=== PATIENT | female | born 1955 | race Caucasian/White ===

== ENCOUNTER → 2017-05-09 | Outpatient (CLI) | payer OTHER | END | disposition home or self-care (01) | LOC: CFH 10:03 | PROVIDERS: ATTEND Family Medicine | DX: I34.0 Nonrheumatic mitral (valve) insufficiency (principal); I35.8 Other nonrheumatic aortic valve disorders; H34.219 Partial retinal artery occlusion, unspecified eye; E11.9 Type 2 diabetes mellitus without complications; E78.2 Mixed hyperlipidemia; I65.22 Occlusion and stenosis of left carotid artery | CPT/HCPCS: 93306; 93880 ==

== ENCOUNTER 2017-07-26 07:44 | Inpatient (IN) | payer OTHER ==
[~2017-07-26] VITALS: Ht 165.1 cm; Wt 123.3 kg
[2017-07-26] MEDS ORDERED: SODIUM CHLORIDE FLUSH 10ML SYR IVF ONE (08:30)
[2017-07-26] MEDS ORDERED: Benfotiamine (08:41)
[2017-07-26] MEDS ORDERED: DAPA10TA PO (08:41)
[2017-07-26] MEDS ORDERED: INSU100V8 SQ (08:41)
[2017-07-26] MEDS ORDERED: METF500T4 PO (08:41)
[2017-07-26] MEDS ORDERED: INSU100V9 SQ-INSULIN (08:41)
[2017-07-26] MEDS ORDERED: EZET10TA18 PO (08:45)
[2017-07-26] MEDS ORDERED: MAGN400T36 PO (08:45)
[2017-07-26] MEDS ORDERED: LIPA1CAP4 PO (08:45)
[2017-07-26] MEDS ORDERED: FLUO10CA7 PO (08:45)
[2017-07-26] MEDS ORDERED: caltrate (08:45)
[2017-07-26] MEDS ORDERED: LEVO15TA6 PO (08:45)
[2017-07-26] MEDS ORDERED: CHOL100012 PO (08:45)
[2017-07-26] MEDS ORDERED: OMEP-110 PO (08:45)
[2017-07-26] MEDS ORDERED: THYR16.2 PO (08:45)
[2017-07-26 08:48] LABS: HEMATOCRIT 42.6 % (34.6-47.8); HEMOGLOBIN 13.9 g/dL (11.7-16.4); WHITE BLOOD COUNT 9.7 x10^3/uL (3.4-10)
[2017-07-26 09:50] LABS: IS PT STATUS REG ER OR PRE ER? YES
[2017-07-26 10:56] LABS: ASPARTATE AMINO TRANSFERASE 16 U/L (15-37); BLOOD UREA NITROGEN 15 mg/dL (7-18)
[2017-07-26] MEDS ORDERED: GUAIFENESIN/DM 200-20MG, 10ML UDC PO PRN (11:00)
[2017-07-26] MEDS ORDERED: POLYETHYLENE GLYCOL 17 GM PACKET PO PRN (11:00)
[2017-07-26] MEDS ORDERED: MORPHINE SULFATE 4 MG/ML, 1ML IVPush PRN (11:00)
[2017-07-26] MEDS ORDERED: LABETALOL 5MG/ML, 20ML IVPush PRN (11:00)
[2017-07-26] MEDS ORDERED: ONDANSETRON ODT 4 MG PO PRN (11:00)
[2017-07-26 11:02] LABS: PATH.CAST-FLAG NOT PRESENT; SPERM-FLAG NOT PRESENT; SRC-FLAG NOT PRESENT; XTAL-FLAG NOT PRESENT; YLC-FLAG NOT PRESENT
[2017-07-26] MEDS ORDERED: ENOXAPARIN 40 MG/0.4 ML ONE (11:05)
[2017-07-26] MEDS: ENOXAPARIN 40 MG/0.4 ML SQ SCH (11:08)
[2017-07-26 12:47] VITALS: BP 116/70
[2017-07-26 13:43] VITALS: BP 128/75
[2017-07-26 14:39] LABS: IS PT STATUS REG ER OR PRE ER? NO
[2017-07-26] MEDS: INSULIN ASPART 100 UNITS/ML, PEN SQ-INSULIN SCH ×2 (16:00→20:50)
[2017-07-26] MEDS: INSULIN DETEMIR 100 UNITS/ML, PEN SQ-INSULIN SCH (16:37)
[2017-07-26 19:31] VITALS: BP 152/72
[2017-07-26 20:38] LABS: IS PT STATUS REG ER OR PRE ER? NO
[2017-07-26] MEDS ORDERED: THYROID PORK 16.25 MG PO SCH (21:00)
[2017-07-27 01:23] VITALS: BP 124/71
[2017-07-27] MEDS: ONDANSETRON 2MG/ML, 2ML IVPush PRN ×2 (01:37→12:45)
[2017-07-27] MEDS ORDERED: THYROID 30 MG TABLET PO SCH (06:00)
[2017-07-27] MEDS ORDERED: ASPIRIN 81 MG TABLET EC PO SCH (06:00)
[2017-07-27] MEDS ORDERED: LEVOTHYROXINE 25 MCG TABLET PO SCH (06:00)
[2017-07-27 07:10] VITALS: BP 126/74
[2017-07-27] MEDS ORDERED: OMEPRAZOLE 20 MG CAPSULE.DR PO SCH (07:30)
[2017-07-27] MEDS ORDERED: FLUOXETINE 10 MG CAP PO SCH (09:00)
[2017-07-27] MEDS ORDERED: MAGNESIUM OXIDE 400 MG TABLET PO SCH (09:00)
[2017-07-27] MEDS ORDERED: LEVOMEFOLATE CALCIUM 15 MG PO SCH (09:00)
[2017-07-27] MEDS ORDERED: EZETIMIBE 10 MG TABLET PO SCH (09:00)
[2017-07-27] MEDS ORDERED: SENNA/DOCUSATE TABLET PO SCH (09:00)
[2017-07-27] MEDS ORDERED: CHOLECALCIFEROL 1,000 UNIT TABLET PO SCH (09:00)
[2017-07-27] MEDS: INSULIN DETEMIR 100 UNITS/ML, PEN SQ-INSULIN SCH (09:40)
[2017-07-27] MEDS ORDERED: REGADENOSON 0.4 MG/5 ML SYRINGE ONE (11:16)
[2017-07-27] MEDS: ENOXAPARIN 40 MG/0.4 ML SQ SCH (12:45)
[2017-07-27] MEDS: INSULIN ASPART 100 UNITS/ML, PEN SQ-INSULIN SCH ×2 (12:54→16:03)
[2017-07-27 13:40] VITALS: BP 126/72
[2017-07-27] MEDS ORDERED: METF500T PO (15:43)
== END 2017-07-27 18:01 | disposition home or self-care (01) | DRG 638 ==
LOC: ED 08:14 → EDIP 09:42 → 5SO 12:22
PROVIDERS: ADMIT Hospitalist; ATTEND Hospitalist
DX: E11.649 Type 2 diabetes mellitus with hypoglycemia without coma (principal); Z68.42 Body mass index [BMI] 45.0-49.9, adult; E66.01 Morbid (severe) obesity due to excess calories; R07.9 Chest pain, unspecified; K21.9 Gastro-esophageal reflux disease without esophagitis; E03.9 Hypothyroidism, unspecified; K44.9 Diaphragmatic hernia without obstruction or gangrene; Z79.82 Long term (current) use of aspirin; Z82.49 Family history of ischemic heart disease and other diseases of the circulatory system; Z83.3 Family history of diabetes mellitus; Z90.710 Acquired absence of both cervix and uterus; Z88.5 Allergy status to narcotic agent
CPT/HCPCS: 36415; 71010; 78452; 80053; 80061; 81001; 82947; 82962; 83036; 83690; 83735; 84484; 85025; 85610; 85730; 87086; 93005; 93017; 99285; J1650; J1815; J2405; J2785; A9502; C9898